=== PATIENT | female | born 1980 | race Caucasian/White ===

== ENCOUNTER → 2018-06-01 | Outpatient (REF) | payer OTHER ==
[~2018-06-01] MED LIST: DOCU10CA PO; LEVO88TA3 PO; PERCOCET PO; PRENTAB7 PO; RANI1TAB6 PO
[2018-06-01 20:47] LABS: APPEARANCE, URINE CLEAR (CLEAR); BACTERIA, URINE AUTO 1+ (NEGATIVE); BILIRUBIN, URINE AUTO NEGATIVE (NEGATIVE); BLOOD, URINE BLOOD NEGATIVE (NEGATIVE); COLOR, URINE YELLOW (YELLOW); GLUCOSE, URINE (UA) AUTO NEGATIVE (NEGATIVE); KETONE, URINE AUTO NEGATIVE (NEGATIVE); LEUKOCYTE ESTERASE, URINE AUTO NEGATIVE (NEGATIVE); MUCUS, URINE SMALL (NEGATIVE); NITRITE, URINE AUTO NEGATIVE (NEGATIVE); PROTEIN, URINE AUTO NEGATIVE (NEGATIVE); RBC, URINE AUTO 0 /HPF (0-3); SPECIFIC GRAVITY URINE AUTO 1.011 (1.002-1.035); SQUAMOUS EPITHELIAL CELL UR AU 0 /HPF (0-6); UROBILINOGEN, URINE AUTO 0.2 mg/dL (0.0-2.0); WBC, URINE AUTO 1 /HPF (0-3)
== END ==
LOC: M LAB REF 19:28
PROVIDERS: ATTEND Physician Assistant Medical
DX: N39.0 Urinary tract infection, site not specified (principal)

== ENCOUNTER → 2020-12-08 | Outpatient (CLI) | payer OTHER ==
[~2020-12-08] MED LIST changes: +RANI-397 PO; -RANI1TAB6 PO
--- NOTE | 2020-12-08 10:51 | REP ---
INDICATION: SCREENING MAMMO. COMPARISON: 05/19/2017 the only prior and without DBT imaging TECHNIQUE: Digital screening mammography was carried out bilaterally in the CC and MLO projections using both 2D and 3D modalities. By history, the patient has no complaints of a palpable breast abnormality or other significant breast complaints. FINDINGS: The breasts are unchanged in size and shape. Once again, dense heterogenous somewhat nodular fibroglandular elements are seen bilaterally to such a degree that the sensitivity of the mammogram in detecting cancer is decreased. In the slightly lower outer aspect of the right breast near the 9 o'clock position there is a potential lissett asymmetric density seen best on DBT imaging. In the upper inner quadrant of the left breast there is a potential lissett asymmetric density which is best seen on DBT imaging. No other suspicious features are seen in either breast. There are no suspicious calcifications. There is no skin thickening or nipple retraction. The Volpara volumetric breast density pattern is C. IMPRESSION: BIRADS/ACR category 0 bilateral mammogram. Potential lissett asymmetric density seen in each breast as described above and for which diagnostic digital DBT spot compression views are recommended in the CC and MLO projections along with ultrasonography if necessary. This patient's Tyrer-Cuzick lifetime breast cancer risk assessment score is 11.9%. This mammogram was interpreted with the aid of an FDA-approved computer-aided detection system. The patient states she had a clinical breast exam in over a year. The patient letter being requested is M0. RECOMMENDATION: As above <Electronically signed by Israel Simons > 12/08/20 [id number]
== END ==
LOC: M WHC 09:30
PROVIDERS: ATTEND Emergency Medicine
DX: Z12.31 Encounter for screening mammogram for malignant neoplasm of breast (principal)

== ENCOUNTER → 2021-03-09 | Outpatient (CLI) | payer OTHER ==
--- NOTE | 2021-03-09 14:49 | REP ---
INDICATION: BILATERAL ADD VIEWS. Focal asymmetries, both breasts. COMPARISON: Screening mammogram, 12/08/2020 TECHNIQUE: 2D and 3D focal compression spot images of both breasts were obtained. Targeted bilateral breast ultrasound was performed. FINDINGS: The Volpara volumetric breast density pattern is B. The focal asymmetry seen in the anterior 3rd of the right breast, lower outer quadrant, is not confirmed on additional view mammography. The focal asymmetry seen in the posterior 3rd of the left breast, upper inner quadrant, is an area of architectural distortion. Right breast ultrasound: 8 o'clock, 8 cm from the nipple, 8 x 5 x 4 mm, intramammary lymph node. Left breast ultrasound: There are no sonographically identifiable cystic or solid masses in the left breast. IMPRESSION: The possible area of architectural distortion in the left breast, is probably benign. BIRADS/ACR : Category 3: Probably benign. The patient letter being requested is M3. RECOMMENDATION: Six-month follow-up mammographic evaluation of the left breast. <Electronically signed by Riki Mcintosh > 03/09/21 [id number]
== END ==
LOC: M WHC 09:53
PROVIDERS: ATTEND Emergency Medicine
DX: R92.8 Other abnormal and inconclusive findings on diagnostic imaging of breast (principal); Z12.31 Encounter for screening mammogram for malignant neoplasm of breast
CPT/HCPCS: 76642; 77066; G0279

== ENCOUNTER → 2022-03-13 | Outpatient (CLI) | payer OTHER | LOC: M WHC 08:29 | PROVIDERS: ATTEND Student in an Organized Health Care Education/Training Program | DX: Z12.31 Encounter for screening mammogram for malignant neoplasm of breast (principal) ==

== ENCOUNTER 2022-12-13 06:27 | Day surgery (SDC) | payer OTHER ==
[~2022-12-13] VITALS: Ht 165.1 cm; Wt 72.4 kg
[~2022-12-13 06:27] MED LIST changes: +DOXY100C3 PO; +FERR325T81 PO; +FLUO10CA18 PO; +SIMV10TA21 PO
[2022-12-13] MEDS ORDERED: LR 1,000 ML IV SCH ×2 (06:55→09:55)
[2022-12-13 07:15] LABS: HEMOGLOBIN 10.7 g/dl (12.0-15.5); MEAN CORPUSCULAR HEMOGLOBIN 24.7 pg (27.0-33.0); MEAN CORPUSCULAR HGB CONC 30.6 g/dl (32.0-36.5); MEAN CORPUSCULAR VOLUME 80.6 fl (80.0-96.0); PLATELET COUNT, AUTOMATED 249 10^3/uL (150-450); RED BLOOD COUNT 4.34 10^6/uL (4.00-5.40)
[2022-12-13 07:50] LABS: HCG, SERUM QUALITATIVE NEGATIVE (NEGATIVE)
[2022-12-13] MEDS ORDERED: MIDAZOLAM INJ 2MG/2ML VIAL As Ordered ONE (08:23)
[2022-12-13] MEDS ORDERED: fentaNYL 100 MCG/2 ML INJECTION As Ordered ONE (08:23)
[2022-12-13] MEDS ORDERED: propofoL 200 MG/20 ML VIAL As Ordered ONE (08:24)
[2022-12-13] MEDS ORDERED: LIDOCAINE 2% 100MG/5ML SDV (FOR ANES.) As Ordered ONE (08:24)
[2022-12-13] MEDS ORDERED: ONDANSETRON 4MG 2ML VIAL As Ordered ONE (08:24)
[2022-12-13] MEDS ORDERED: LEVONORGESTREL 52MG (MIRENA) IUD As Ordered ONE (08:50)
[2022-12-13] MEDS ORDERED: KETOROLAC 60MG 2ML VIAL As Ordered ONE (08:56)
[2022-12-13] MEDS ORDERED: GLYCOPYRROLATE INJ 0.2 MG/ML 2 ML VIAL As Ordered ONE (09:28)
[2022-12-13] MEDS ORDERED: HYDROMORPHONE HCL 0.5 MG/ 0.5 ML SYRINGE IV PRN (09:55)
[2022-12-13] MEDS ORDERED: fentaNYL 100 MCG/2 ML INJECTION IV PRN (09:55)
[2022-12-13] MEDS ORDERED: ONDANSETRON 4MG 2ML VIAL IV PRN (09:55)
[2022-12-13] MEDS ORDERED: oxyCODONE 5MG TAB PO PRN ×3 (09:55→10:20)
[2022-12-13 11:40] VITALS: BP 117/69; TEMP 96.9; O2SAT 98
== END 2022-12-13 11:40 | disposition home or self-care (01) ==
LOC: M SDC 06:27
PROVIDERS: ATTEND Obstetrics & Gynecology
DX: N85.8 Other specified noninflammatory disorders of uterus (principal); N85.00 Endometrial hyperplasia, unspecified; D25.9 Leiomyoma of uterus, unspecified; F17.210 Nicotine dependence, cigarettes, uncomplicated; E78.5 Hyperlipidemia, unspecified; F41.9 Anxiety disorder, unspecified; F32.A Depression, unspecified; Z79.899 Other long term (current) drug therapy
CPT/HCPCS: 36415; 58300; 58558; 81025; 84703; 85027; 86850; 86900; 86901; 88305; J1100; J1885; J2250; J2405; J3010; J7298

== ENCOUNTER → 2023-07-22 | Outpatient (CLI) | payer OTHER | LOC: M WHC 09:46 | PROVIDERS: ATTEND Nurse Practitioner Primary Care | DX: Z12.31 Encounter for screening mammogram for malignant neoplasm of breast (principal) ==

== ENCOUNTER → 2024-08-10 | Outpatient (CLI) | payer OTHER ==
[~2024-08-10] MED LIST changes: +FLUO-290 PO; -FLUO10CA18 PO
== END ==
LOC: M WHC 13:11
PROVIDERS: ATTEND Physician Assistant
DX: Z12.31 Encounter for screening mammogram for malignant neoplasm of breast (principal)